=== PATIENT | female | born 1995 | race Caucasian/White ===

== ENCOUNTER 2018-05-29 20:28 | Inpatient (IN) | payer OTHER ==
[2018-05-29] MEDS ORDERED: OXYTOCIN 10 UNIT/ML VIAL ONE (20:34)
[2018-05-29] MEDS ORDERED: DINOPROSTONE 10 MG VAGINAL INSERT.SR ONE (20:35)
[2018-05-29] MEDS ORDERED: LIDOCAINE 1% INJ-PF (10 MG/ML) 30 ML SDV ONE (20:35)
[2018-05-29] MEDS ORDERED: OXYTOCIN/NORMAL SALINE 20 UNIT/1,000 ML RTUINJ ONE (20:35)
[2018-05-29] MEDS ORDERED: MISOPROSTOL 0.2 MG TABLET ONE (20:35)
[2018-05-29] MEDS ORDERED: DINOPROSTONE 10 MG VAGINAL INSERT.SR PV PRN (20:50)
[2018-05-29] MEDS ORDERED: OXYTOCIN/NORMAL SALINE 20 UNIT/1,000 ML RTUINJ IV PRN (20:50)
[2018-05-29] MEDS ORDERED: RINGERS SOLUTION,LACTATED 300 ML IV ONE (21:30)
[2018-05-29] MEDS: RINGERS SOLUTION,LACTATED 1,000 ML IV PRN (21:39)
[2018-05-29 21:40] LABS: ABSOLUTE LYMPHOCYTES (AUTO) 1.9 10^3/uL (0.5-4.7); ABSOLUTE MONOCYTES (AUTO) 0.6 10^3/uL (0.1-1.4); ABSOLUTE NEUT (AUTO) 6.6 10^3/uL (1.7-8.2); BASOPHILS % (AUTO) 0.3 % (0-2); EOSINOPHILS % (AUTO) 0.4 % (0-6); HEMATOCRIT 32.4 % (36.0-47.0); HEMOGLOBIN 11.4 g/dL (12.0-15.5); LYMPHOCYTES % (AUTO) 20.7 % (13-45); MEAN CORPUSCULAR HEMOGLOBIN 30.1 pg (27.0-33.4); MEAN CORPUSCULAR HGB CONC 35.3 g/dL (32.0-36.0); MEAN CORPUSCULAR VOLUME 85 fl (80-97); MONOCYTES % (AUTO) 6.9 % (3-13); PLATELET COUNT 210 10^3/uL (150-450); RED CELL DISTRIBUTION WIDTH 13.1 % (11.5-14.0); SEGMENTED NEUTROPHILS % (AUTO) 71.7 % (42-78); TOTAL CELLS COUNTED % (AUTO) 100 %; WHITE BLOOD COUNT 9.1 10^3/uL (4.0-10.5)
[2018-05-29] MEDS ORDERED: ZOLPIDEM TARTRATE 5 MG TABLET ONE (23:59)
[2018-05-30] MEDS ORDERED: ZOLPIDEM TARTRATE 5 MG TABLET ONE (01:32)
[2018-05-30] MEDS ORDERED: NALBUPHINE HCL INJ 10 MG/1 ML AMPULE ONE (02:13)
[2018-05-30] MEDS ORDERED: PROMETHAZINE HCL INJ 25 MG/1 ML VIAL ONE (02:13)
[2018-05-30] MEDS ORDERED: PROMETHAZINE HCL INJ 25 MG/1 ML VIAL IV ONE (02:45)
[2018-05-30] MEDS ORDERED: NALBUPHINE HCL INJ 10 MG/1 ML AMPULE INJ ONE (02:45)
--- NOTE | 2018-05-30 03:22 | Admission Physical ---
Datetime Report Generated by CPN: 05/30/2018 03:22 CURRENT ADMISSION Chief Complaint: Scheduled Induction of Labor Indication for Induction: Post Dates Admit Impression : Term, Intrauterine ; No Active Labor; Intact Membranes; Induction of Labor Admit Plan: Admit to Unit; Initiate Labor Induction Protocol ALLERGIES Medication Allergies: Yes Medication Allergies: amoxicillin (05/29/2018) Latex: No Latex Allergies OBSTETRICAL HISTORY EDC: 05/24/2018 00:00 : 1 Para: 0 Term: 0 : 0 SAB: 0 IAB: 0 Ectopic: 0 Livin Cesareans: 0 VBACs: 0 Multiple Births: 0 Gestational Diabetes: No Rh Sensitization: No Incompetent Cervix: No MAGNUS: No Infertility: No ART Treatment: No Uterine Anomaly: No IUGR: No Hx Previous C/S: No Macrosomia: No Hx Loss/Stillborn: No PIH: No Hx : No Placenta Previa/Abruption: No Depression/PP Depression: No PTL/PROM: No Post Hemorrhage: No Obstetrical History Comments: G1: current SEE RECORDS Alcohol: No Marijuana : No Cocaine: No Other Illicit Drugs: No Cigarettes: Never Smoker. [id number] MEDICAL HISTORY Diabetes: No Blood Transfusion: No Pulmonary Disease (Asthma, TB): No Breast Disease: No Hypertension: No Retail Loan Originator Assistant Surgery: No Heart Disease: No Hosp/Surgery: No Autoimmune Disorder: No Anesthetic Complications: No Kidney Disease: No Abnormal Pap Smear: No Neuro/Epilepsy: No Psychiatric Disorders: No Other Medical Diseases: No Hepatitis/Liver Disease: No Significant Family History: No Varicosities/Phlebitis: No Trauma/Violence : No Thyroid Dysfunction: No Medical History Comments: cholecystectomy 2015, oral surgery 2014, tonsillectomy 2012 INFECTIOUS HISTORY Gonorrhea: No Genital Herpes: No Chlamydia: No Tuberculosis: No Syphilis: No Hepatitis: No HIV/AIDS Exposure: No Rash or Viral Illness: No HPV: No PHYSICAL EXAM General: Normal HEENT: Normal Neurologic: Normal Thyroid: Normal Heart: Normal Lungs: Normal Breast: Normal Back: Normal Abdomen: Normal Genitourinary Exam: Normal Extremities: Normal DTRs: Normal Pelvic Type: Adequate Vital Signs: Reviewed; Within Normal Limits VAGINAL EXAM Dilatation: closed Effacement: thick Station: -3 Contraction Comments: rare MEMBRANES Membranes: Intact FETUS A EGA: 40.6 Monitoring: External US FHR- Baseline: 120-130s Variability: Moderate 6-25bpm Accelerations: 15X15 Decelerations: None FHR Category: Category I Admit Comment: Pt's cervix was closed upon admission and a cervidil was placed. Her cervix is now 3 cm. Pt is GBS Negative. PLANS FOR LABOR AND DELIVERY Labor and Delivery: None Pain Management: Epidural Feeding Preference: Breast Benefit of Breast Feed Discussed: Yes Circumcision: N/A INFORMED CONSENT Signature: with User ID: [email or web address]
[2018-05-30] MEDS ORDERED: OXYTOCIN/NORMAL SALINE 20 UNIT/1,000 ML RTUINJ IV PRN ×2 (11:49→22:39)
[2018-05-30] MEDS ORDERED: OXYTOCIN/NORMAL SALINE 0 UNIT/0 ML RTUINJ ONE (11:51)
[2018-05-30] MEDS ORDERED: EPHEDRINE SULFATE INJ 50 MG/1 ML AMPULE ONE (14:39)
[2018-05-30] MEDS ORDERED: BUPIVACAINE HCL 0.25 % INJ/PF (2.5 MG/1 ML) 30 ML VIAL ONE (14:39)
[2018-05-30] MEDS ORDERED: FENTANYL/BUPIVACAINE/NS/PF 300 MCG/150 ML RTUINJ EPI ONE (14:39)
[2018-05-30] MEDS: RINGERS SOLUTION,LACTATED 1,000 ML IV PRN (19:21)
[2018-05-30] MEDS ORDERED: PROMETHAZINE HCL 25 MG TABLET PO PRN (22:39)
[2018-05-30] MEDS ORDERED: ACETAMINOPHEN WITH CODEINE #3 TABLET PO PRN ×2 (22:39)
[2018-05-30] MEDS ORDERED: BENZOCAINE/MENTHOL AEROSOL SPRAY 56 ML TOP PRN (22:39)
[2018-05-30] MEDS ORDERED: NA PHOS,M-B/NA PHOS,DI-BA (ADULT) 133 ML ENEMA PR PRN (22:39)
[2018-05-30] MEDS ORDERED: MEASLES,MUMPS&RUBELLA VACC/PF 0.5 ML VIAL SUBCUT PRN (22:39)
[2018-05-30] MEDS ORDERED: MAGNESIUM HYDROXIDE SUSP 30 ML UDCUP PO PRN (22:39)
[2018-05-30] MEDS ORDERED: PROMETHAZINE HCL 25 MG SUPP.RECT PR PRN (22:39)
[2018-05-30] MEDS ORDERED: GLYCERIN/WITCH HAZEL LEAF 1 EACH MED..PAD TP PRN (22:39)
[2018-05-30] MEDS ORDERED: DIPH/PERTUSS(ACELL)/TETANUS VAC/PF 0.5 ML SYR (>=10YO) IM PRN (22:39)
[2018-05-30] MEDS ORDERED: PSEUDOEPHEDRINE HCL 30 MG TABLET PO PRN (22:39)
[2018-05-30] MEDS ORDERED: PROMETHAZINE HCL INJ 25 MG/1 ML VIAL IV PRN (22:39)
[2018-05-30] MEDS ORDERED: DIPHENHYDRAMINE HCL 25 MG CAPSULE PO PRN (22:39)
[2018-05-30] MEDS ORDERED: ZOLPIDEM TARTRATE 5 MG TABLET PO PRN (22:39)
[2018-05-30] MEDS ORDERED: DIBUCAINE 1% OINTMENT 56 GM TP PRN (22:39)
[2018-05-30] MEDS ORDERED: ACETAMINOPHEN 650 MG SUPP.RECT PR PRN (22:39)
[2018-05-30] MEDS ORDERED: BENZOCAINE/MENTHOL AEROSOL SPRAY 56 ML ONE (23:18)
[2018-05-30] MEDS ORDERED: IBUPROFEN 800 MG TABLET ONE (23:18)
--- NOTE | 2018-05-31 00:04 | Warning Signs in Babies ---
VOD Warning Signs Datetime Report Generated by [facility]: 05/31/2018 00:04 VOD#608 -Warning Signs in Babies: Viewed with Parent(s)/Family (05/30/2018 23:30:Isa Bertrand RN)
--- NOTE | 2018-05-31 00:07 | Delivery Summary ---
Del Sum A-C Datetime Report Generated by CPN: 05/31/2018 00:07 DELIVERY PERSONNEL DELIVERY PERSONNEL: [id number] Delivery Doctor:: Marcela Aguilar MD Labor and Delivery Nurse:: Isa Bertrand RNfield contractor Nurse:: Sade Garner RN Dry Wall Nailer/AUTOMATED CUTTING MACHINE OPERATOR: Elisa Jaramillo, CPC MATERNAL INFORMATION Delivery Anesthesia: Epidural Medications After Delivery: Pitocin Drip 20 Units/1000ml NSS; Cytotec 1000mcg Per Rectum/Vagina Estimated Blood Loss (ml): 350 Maternal Complications: None LABOR SUMMARY EDC: 05/24/2018 00:00 Attempted: No Labor Anesthesia: Epidural LABOR INFORMATION Reason for Induction: Post Dates Onset of Labor: 05/30/2018 18:37 Complete Dilatation: 05/30/2018 21:39 Cervical Ripening Agents: Cervidil Oxytocin: Induction Group B Beta Strep: negative Antibiotics # of Doses: 0 Steroids Given: None Reason Steroids Not Administered: Not Applicable MEMBRANES Membranes Rupture Method: Artificial Rupture of Membranes: 05/23/2018 18:37 Length of Rupture (hr): 171.87 Amniotic Fluid Color: Clear Amniotic Fluid Amount: Scant Amniotic Fluid Odor: None STAGES OF LABOR Stage 1 hr: 3 Stage 1 min: 2 Stage 2 hr: 0 Stage 2 min: 50 Stage 3 hr: 0 Stage 3 min: 3 Total Time in Labor hr: 3 Total Time in Labor min: 55 VAGINAL DELIVERY Episiotomy: None Laceration #1: Vaginal Laceration Extension #1: First Degree Laceration Repair: Not Applicable Sponge Count Correct: N/A Sharps Count Correct: N/A CSECTION DELIVERY Primary Indication: N/A Secondary Indication: N/A CSection Incidence: N/A Labor: N/A Elective: N/A CSection Incision: N/A BABY A INFORMATION Infant Delivery Date/Time: 05/30/2018 22:29 Method of Delivery: Vaginal Born in Route : No : N/A Forceps: N/A Vacuum Extraction: N/A Shoulder Dystocia : No PRESENTATION/POSITION BABY A Presentation: Cephalic Cephalic Presentation: Vertex Vertex Position: Right Occipital Anterior Breech Presentation: N/A PLACENTA INFORMATION BABY A Placenta Delivery Time : 05/30/2018 22:32 Placenta Method of Delivery: Expressed Placenta Status: Delivered SCORES BABY A Heart Rate 1 min: >100 bpm Resp Effort 1 min: Good Cry Reflex Irritability 1 min: Cough or Sneeze or Pulls Away Muscle Tone 1 min: Active Motion Color 1 min: Blue/Pale Resuscitation Effort 1 min: Tactile Stimulation SCORE 1 MIN: 8 Heart Rate 5 min: >100 bpm Resp Effort 5 min: Good Cry Reflex Irritability 5 min: Cough or Sneeze or Pulls Away Muscle Tone 5 min: Active Motion Color 5 min: Body Mandan, Extremities Blue Resuscitation Effort 5 min: N/A SCORE 5 MIN: 9 INFORMATION BABY A Gestational Age at Delivery: 40.6 Gestational Status: Full Term- 39- 40.6 Weeks Infant Outcome : Liveborn Condition : Stable Infant Sex: Female IDENTIFICATION BABY A Verification Date/Time: 05/30/2018 22:43 ID Band Number: [id number] Mother's Name Verified: Yes Infant RN Verifying : Armando Bertrand RN Additional Verifying Personnel: Zub[address] ST WEIGHT/LENGTH BABY A Birthweight (gm): 3230 Weight (lb): 7 Infant Weight (oz): 2 Length (in): 19.00 Infant Length (cm): 48.26 CORD INFORMATION BABY A No. Cord Vessels: 3 Nuchal Cord : N/A Cord Blood Taken: Yes-For Eval (Mom's Blood Type - or O+) Suction: Mouth; Nose ASSESSMENT BABY A Complications: None Physical Findings at Delivery: Within Normal Limits Respirations: Appears Normal Skin to Skin: Yes Echocardiography Technologist/ALS Called : No Infant Care By: Bev Garner RN Transferred To: Remains with Mother BABY B INFORMATION : N/A SIGNATURES Signature: with User ID: [email or web address]
[2018-05-31] MEDS ORDERED: LOPERAMIDE HCL 2 MG CAPSULE PO ONE (02:30)
[2018-05-31] MEDS: IBUPROFEN 800 MG TABLET PO SCH ×3 (05:47→21:23)
[2018-05-31 07:40] LABS: HEMATOCRIT 26.5 % (36.0-47.0); MEAN CORPUSCULAR HEMOGLOBIN 29.9 pg (27.0-33.4); MEAN CORPUSCULAR HGB CONC 34.7 g/dL (32.0-36.0); MEAN CORPUSCULAR VOLUME 86 fl (80-97); PLATELET COUNT 183 10^3/uL (150-450); RED BLOOD COUNT 3.07 10^6/uL (3.72-5.28); RED CELL DISTRIBUTION WIDTH 13.5 % (11.5-14.0); WHITE BLOOD COUNT 13.4 10^3/uL (4.0-10.5)
[2018-05-31 07:41] LABS: HEMOGLOBIN 9.2 g/dL (12.0-15.5)
[2018-05-31] MEDS: FAMOTIDINE 20 MG TABLET PO SCH ×2 (09:37→21:24)
[2018-05-31] MEDS: FERROUS SULFATE 325 MG TABLET PO SCH ×2 (09:37→17:23)
[2018-05-31] MEDS: PRENATAL VITAMIN W DHA CAPSULE PO SCH (09:37)
--- NOTE | 2018-05-31 10:57 | PDOC PROGRESS REPORT ---
Subjective-OB Progress Note for:: 05/31/18 Subjective: Pt doing well, no concerns. She reports light bleeding, reg diet and voiding without difficulty. Physical Exam (OB) Vital Signs: Temp Pulse Resp BP Pulse Ox 98.1 F 68 15 104/68 99 05/31/18 07:50 05/31/18 07:50 05/31/18 07:50 05/31/18 07:50 05/31/18 07:50 Intake & Output 05/30/18 05/31/18 06/01/18 06:59 06:59 06:59 Intake Total 1000 Balance 1000 Weight 65.2 kg - Lochia Lochia Amount: Small 10-25 ml Lochia Color: Rubra/Red - Abdomen Description: Soft, Round Hernia Present: No Fundal Description: Firm, Midline Fundal Height: u/u - u/2 Objective-Diagnostic Laboratory: 05/31/18 06:32 05/31/18 05/31/18 06:32 06:32 WBC 13.4 H RBC 3.07 L Hgb 9.2 L D Hct 26.5 L MCV 86 MCH 29.9 MCHC 34.7 RDW 13.5 Plt Count 183 Blood Type A NEGATIVE Assessment and Plan(PN) - Assessment and Plan (1) Vaginal delivery Is this a current diagnosis for this admission?: Yes (2) Encounter for planned induction of labor Is this a current diagnosis for this admission?: Yes - Time Spent with Patient Time with patient: Less than 15 minutes Medications reviewed and adjusted accordingly: Yes - Disposition Anticipated Discharge: Home Within: within 24 hours
[2018-05-31] MEDS: DOCUSATE SODIUM 100 MG CAPSULE PO SCH (17:23)
[2018-06-01] MEDS: IBUPROFEN 800 MG TABLET PO SCH (05:32)
[2018-06-01] MEDS: SENNOSIDES/DOCUSATE 8.6-50 MG 1 EACH TABLET PO SCH ×2 (09:59→10:03)
[2018-06-01] MEDS: FERROUS SULFATE 325 MG TABLET PO SCH (10:00)
[2018-06-01] MEDS: PRENATAL VITAMIN W DHA CAPSULE PO SCH ×3 (10:00→10:03)
[2018-06-01] MEDS: DOCUSATE SODIUM 100 MG CAPSULE PO SCH ×2 (10:00→10:03)
[2018-06-01] MEDS: FAMOTIDINE 20 MG TABLET PO SCH (10:00)
[2018-06-01 13:02] VITALS: BP 111/73
--- NOTE | 2018-06-01 14:27 | PDOC DISCHARGE SUMMARY ---
Final Diagnosis Discharge Date: 06/01/18 - Final Diagnosis (1) Acute blood loss anemia Is this a current diagnosis for this admission?: Yes (2) Encounter for planned induction of labor Is this a current diagnosis for this admission?: Yes (3) Obstetric vaginal laceration Is this a current diagnosis for this admission?: Yes (4) Vaginal delivery Is this a current diagnosis for this admission?: Yes Discharge Data - Discharge Medication Prescriptions: Ibuprofen [Motrin 800 mg Tablet] 800 mg PO Q8HP PRN #30 tablet PRN Reason: Abdominal Cramping Docusate Sodium [Colace 100 mg Capsule] 100 mg PO BID #60 capsule Ferrous Sulfate [Feosol 325 mg Tablet] 325 mg PO BID #60 tablet Home Medications: Vits96/Iron Fum/Folic [ Tablet] 1 tab PO DAILY 05/29/18 Docusate Sodium [Colace 100 mg Capsule] 100 mg PO BID #60 capsule 06/01/18 Ferrous Sulfate [Feosol 325 mg Tablet] 325 mg PO BID #60 tablet 06/01/18 Ibuprofen [Motrin 800 mg Tablet] 800 mg PO Q8HP PRN #30 tablet 06/01/18 Reason(s) for Admission: Induction of Labor Procedures: NST, Ultrasound Intrapartum Procedure(s): Spontaneous Vaginal Delivery Complication(s): Laceration-Vaginal Laceration-Degree: 1st - Diagnosis Test Laboratory: Temp Pulse Resp BP Pulse Ox 97.4 F 79 16 112/58 L 100 05/31/18 19:23 05/31/18 19:23 05/31/18 19:23 05/31/18 19:23 05/31/18 19:23 05/29/18 05/31/18 21:21 06:32 RBC 3.80 3.07 L Hgb 11.4 L 9.2 L D Hct 32.4 L 26.5 L - Discharge information/Instructions Discharge Activity: Activity As Tolerated, Balance Activity w/Rest, No Lifting Over 10 Pounds, Pelvic Rest, No tub bath, Walk Frequently Discharge Diet: As Tolerated, Regular Disposition: HOME, SELF-CARE Follow [facility] with: [facility] in: 5, Weeks
== END 2018-06-01 15:05 | disposition home or self-care (01) | DRG 806 ==
LOC: LR 20:28 → 2S 05-31 00:51
PROVIDERS: ADMIT Obstetrics & Gynecology; ATTEND Obstetrics & Gynecology
PROC: 10E0XZZ Delivery of Products of Conception, External Approach (ICD-10-PCS; principal; 2018-05-30)
PROC: 3E0234Z Introduction of Serum, Toxoid and Vaccine into Muscle, Percutaneous Approach (ICD-10-PCS; 2018-06-01)
DX: O48.0 Post-term pregnancy (principal); D62 Acute posthemorrhagic anemia; Z37.0 Single live birth; O70.0 First degree perineal laceration during delivery; O99.02 Anemia complicating childbirth; Z3A.40 40 weeks gestation of pregnancy; O26.893 Other specified pregnancy related conditions, third trimester; Z67.41 Type O blood, Rh negative
CPT/HCPCS: 36415; 85025; 85027; 85461; 86592; 86850; 86870; 86900; 86901; J2300; J2550; J2590; J2790; J3010; J3490